=== PATIENT | male | born 1960 | race Caucasian/White ===

== ENCOUNTER 2018-01-07 13:32 | Emergency (ER) | payer MEDICARE, OTHER ==
[~2018-01-07] VITALS: Ht 180.3 cm; Wt 95.7 kg
[2018-01-07] MEDS ORDERED: HYDROCODONE/APAP 5-325MG TABLET ONE (14:26)
[2018-01-07] MEDS ORDERED: HYDROCODONE/APAP 5-325MG TABLET PO ONE (14:30)
[2018-01-07] MEDS ORDERED: KETOROLAC TROMETHAMINE 15 MG INJ ONE (15:11)
[2018-01-07] MEDS: KETOROLAC TROMETHAMINE 15 MG INJ IVP ONE ×2 (15:14→15:15)
[2018-01-07 15:51] LABS: BASOPHILS # (AUTO) 0.1 K/uL (0.0-8.0); BASOPHILS % (AUTO) 0.7 % (0.0-2.0); EOSINOPHILS # (AUTO) 0.4 K/uL (0.0-0.7); EOSINOPHILS % (AUTO) 3.1 % (0.0-7.0); HEMATOCRIT 40.8 % (36.7-47.1); HEMOGLOBIN 13.5 g/dL (12.5-16.3); LYMPHOCYTES # (AUTO) 4.3 K/uL (20.0-40.0); MEAN CORPUSCULAR HEMOGLOBIN 29.3 uug (23.8-33.4); MEAN CORPUSCULAR HGB CONC 33 g/dL (32.5-36.3); MEAN CORPUSCULAR VOLUME 88.2 fL (73.0-96.2); MONOCYTES # (AUTO) 1.2 K/uL (2.0-10.0); MONOCYTES % (AUTO) 8.6 % (0.0-11.0); NEUTROPHILS # (AUTO) 8.2 K/uL (1.8-8.9); NEUTROPHILS % (AUTO) 57.6 % (38.5-71.5); PLATELET COUNT (AUTO) 263 K/uL (152-348); RED BLOOD CELL COUNT(AUTO) 4.62 MIL/uL (4.06-5.63); WHITE BLOOD COUNT (AUTO) 14.3 K/uL (3.6-10.2)
[2018-01-07 15:59] LABS: POTASSIUM 4.1 mmol/L (3.5-5.1)
[2018-01-07 16:05] LABS: BILIRUBIN,DIRECT 0.1 mg/dL (0.0-0.2); BILIRUBIN,TOTAL 0.4 mg/dL (0.2-1.0); TOTAL PROTEIN, SERUM 7.4 g/dL (6.4-8.2)
[2018-01-07] MEDS ORDERED: MORPHINE SULFATE 4 MG/1 ML DISP.SYRIN IV ONE (16:30)
[2018-01-07] MEDS ORDERED: MORPHINE SULFATE 4 MG/1 ML DISP.SYRIN ONE (16:36)
[2018-01-07] MEDS ORDERED: SWABABLE VALVE TRANSFER SET EA MC ONE (16:55)
[2018-01-07] MEDS ORDERED: IV NORMAL SALINE 250 ML IV ONE (16:55)
[2018-01-07] MEDS ORDERED: IOHEXOL 350 100 ML INFUS..BTL ONE (16:55)
[2018-01-07] MEDS ORDERED: NORMAL SALINE FLUSH 10 ML DISP.SYRIN ONE (16:55)
--- NOTE | 2018-01-07 18:27 | NUR ---
MSE COMPLETED, ALL MEDS ADMIN, IV D/C'D INTACT, COPY OF ALL TESTS GIEN, IV D/C'D INTACT. PT AMBULATED W/O DISTRESS, TOOK ALL BELONGINGS.
[2018-01-07 18:29] VITALS: BP 122/74
== END 2018-01-07 18:29 | disposition home or self-care (01) ==
LOC: ER 13:35
DX: M54.9 Dorsalgia, unspecified (principal); I10 Essential (primary) hypertension; E78.00 Pure hypercholesterolemia, unspecified; E11.9 Type 2 diabetes mellitus without complications
CPT/HCPCS: 36415; 70030-TC; 71045; 85025; 85730; 93005; A4663; J1885; J2270; J3490; J7050; Q9967

== ENCOUNTER 2018-10-18 21:53 | Emergency (ER) | payer OTHER, MEDICAID ==
[~2018-10-18] VITALS: Ht 180.3 cm; Wt 99.8 kg
[2018-10-18] MEDS ORDERED: ATORVASTATIN 40 MG TABLET (22:31)
[2018-10-18] MEDS ORDERED: OXYCODONE-ACETAMINOPHEN 5-325 (22:31)
[2018-10-18] MEDS ORDERED: BENAZEPRIL HCL 40 MG (22:31)
[2018-10-18] MEDS ORDERED: DICLOFENAC SODIUM 1% GEL (22:31)
[2018-10-18] MEDS ORDERED: PROAIR HFA 90 MCG INHALER (22:31)
[2018-10-18] MEDS ORDERED: KETOCONAZOLE 2% SHAMPOO (22:31)
[2018-10-18] MEDS ORDERED: GLIPIZIDE 5 MG TABLET (22:31)
[2018-10-18] MEDS ORDERED: FLUTICASONE PROP 50 MCG SPRAY (22:31)
[2018-10-18] MEDS ORDERED: GABAPENTIN 600 MG TABLET (22:31)
[2018-10-18] MEDS ORDERED: MELOXICAM 15 MG TABLET (22:31)
[2018-10-18] MEDS ORDERED: JANUVIA 100 MG TABLET (22:31)
[2018-10-18] MEDS ORDERED: DULOXETINE HCL 30 MG (22:31)
[2018-10-18] MEDS ORDERED: DICLOFENAC (22:31)
--- NOTE | 2018-10-18 23:54 | NUR ---
Patient discharged to home in stable conditon. Written and verbal after care instructions given. Patient verbalizes understanding of instructions. WALKED OUT OF ER WITH NO DISTRESS NOTED
== END 2018-10-18 23:55 | disposition home or self-care (01) ==
LOC: ER 21:56
DX: Z48.01 Encounter for change or removal of surgical wound dressing (principal); I10 Essential (primary) hypertension; E78.00 Pure hypercholesterolemia, unspecified; Z90.89 Acquired absence of other organs; Z79.899 Other long term (current) drug therapy
CPT/HCPCS: A4663

== ENCOUNTER 2019-03-22 13:40 | Emergency (ER) | payer OTHER, MEDICAID ==
[~2019-03-22] VITALS: Ht 182.9 cm; Wt 108.9 kg
[~2019-03-22 13:40] MED LIST: ATORVASTATIN 40 MG TABLET; BENAZEPRIL HCL 40 MG; DICLOFENAC; DICLOFENAC SODIUM 1% GEL; DULOXETINE HCL 30 MG; FLUTICASONE PROP 50 MCG SPRAY; GABAPENTIN 600 MG TABLET; GLIPIZIDE 5 MG TABLET; JANUVIA 100 MG TABLET; KETOCONAZOLE 2% SHAMPOO; MELOXICAM 15 MG TABLET; OXYCODONE-ACETAMINOPHEN 5-325; PROAIR HFA 90 MCG INHALER
--- NOTE | 2019-03-22 13:50 | NUR ---
PATIENT WAS MSE BY DR FREITAS IN ROOM 03A. PATIENT A & O X4.
[2019-03-22 14:09] VITALS: BP 141/77
--- NOTE | 2019-03-22 14:10 | NUR ---
Patient discharged to home in stable conditon. Written and verbal after care instructions given. Patient verbalizes understanding of instructions.
== END 2019-03-22 14:14 | disposition home or self-care (01) ==
LOC: ER 13:40
DX: S63.615A Unspecified sprain of left ring finger, initial encounter (principal); I10 Essential (primary) hypertension; E78.5 Hyperlipidemia, unspecified; E11.9 Type 2 diabetes mellitus without complications; Z90.89 Acquired absence of other organs; Z79.899 Other long term (current) drug therapy; W23.0XXA Caught, crushed, jammed, or pinched between moving objects, initial encounter; Y93.89 Activity, other specified; Y92.89 Other specified places as the place of occurrence of the external cause; Y99.8 Other external cause status
CPT/HCPCS: 73140; A4663

== ENCOUNTER 2019-04-14 13:36 | Emergency (ER) | payer OTHER, MEDICAID ==
[~2019-04-14] VITALS: Ht 182.9 cm; Wt 97.5 kg
--- NOTE | 2019-04-14 14:13 | NUR ---
PT IS IN ROOM #2B. DR KELLEY EVALUATED THE PT.
--- NOTE | 2019-04-14 15:27 | NUR ---
PT WAS D/C'd TO HOME. D/C INSTRUCTIONS GIVEN TO THE PT.
[2019-04-14 15:28] VITALS: BP 142/77
== END 2019-04-14 15:30 | disposition home or self-care (01) ==
LOC: ER 13:36
DX: S63.615A Unspecified sprain of left ring finger, initial encounter (principal); I10 Essential (primary) hypertension; E78.00 Pure hypercholesterolemia, unspecified; E11.9 Type 2 diabetes mellitus without complications; Z90.89 Acquired absence of other organs; Z79.899 Other long term (current) drug therapy; W23.0XXA Caught, crushed, jammed, or pinched between moving objects, initial encounter; Y93.89 Activity, other specified; Y92.89 Other specified places as the place of occurrence of the external cause; Y99.8 Other external cause status
CPT/HCPCS: 73120; A4663